=== PATIENT | male | born 1970 | race Caucasian/White ===

== ENCOUNTER 2024-02-28 10:16 | Emergency (ER) | payer MEDICARE, MEDICAID, SELFPAY ==
--- NOTE | ~2024-02-28 | XR_ITS ---
EXAMINATION: XR CHEST CLINICAL INFORMATION: Chest pain COMPARISON: None available. TECHNIQUE: Frontal view of the chest was obtained. FINDINGS: Cardiomediastinal silhouette is within normal limits. No vascular congestion or edema. Hypoexpanded lungs. Streaky opacities bilaterally in the mid and lower lungs. Focal pleural thickening in the left mid chest may relate to pleural effusion or chronic pleural thickening. No pneumothorax. XR/XR chest 1V IMPRESSION: Streaky opacities in the bilateral mid and lower lungs. Favor atelectasis. Pneumonia not excluded. Smooth pleural thickening along the left mid chest wall may relate to pleural effusion or chronic pleural thickening. There is no prior for comparison.
--- NOTE | 2024-02-28 10:17 | ECG_ITS ---
Test Reason : CHEST PAIN Blood Pressure : / mmHG Vent. Rate : 083 BPM Atrial Rate : 083 BPM P-R Int : 144 ms QRS Dur : 078 ms QT Int : 356 ms P-R-T Axes : 052 035 093 degrees QTc Int : 418 ms Normal sinus rhythm Nonspecific ST and T wave abnormality Borderline ECG No previous ECGs available Referred By: Christal Church Electronically Signed By:AGUILA TRACEY
--- NOTE | 2024-02-28 10:27 | ED.GENADULT ---
HPI - General Adult General Chief complaint: Chest Pain Stated complaint: Chest pain Time Seen by Provider: 02/28/24 10:19 Source: patient and family (Mother, Jo Ann) Mode of arrival: ambulatory Limitations: no limitations History of Present Illness ED Provider: Dr. Ravinder Sahu HPI narrative: 53-year-old male with a history of hypertension and tobacco use disorder who presents emergency department for evaluation of left-sided chest pain. The patient states that at 09:30 hours he was sitting drinking a soda when he had a gradual onset of left-sided chest pain. Patient points to his left anterior chest when asked to localize the pain. He states the pain is a constant, throbbing pain which waxes and wanes in intensity. The pain is 9/10 at its worst. Pain radiates to his right shoulder. It does not radiate to his neck, jaw or back. He denied diaphoresis, lightheadedness, dizziness, nausea, vomiting or shortness of breath associated with his pain. He states this is 1st episode of pain. Patient states he has not been ill in the last week. He has not had any dyspnea on exertion or chest with exertion. He denied fever, chills, cough, abdominal pain. Related Data Allergies Allergy/AdvReac Type Severity Reaction Status Date / Time No Known Allergies Allergy Verified 02/28/24 10:52 [facility] Past Medical History [facility] Narrative: Past medical history: Hypertension. Social history: He smokes 1 pack of cigarettes per day times 37 years he denies alcohol or drug use. Social History Social History Alcohol intake: former Smoked in Last 30 Days: Yes Use of substances other than those prescribed or required for medical reasons: No Advance Directives: No Advance Directives Information Provided: Yes Physical Exam ED Vital Signs: Vital Signs - 24 hr 02/28/24 10:51 02/28/24 12:21 02/28/24 14:23 Temperature 98 F 98.0 F 98.4 F Pulse Rate 87 83 85 Respiratory Rate 18 14 18 Blood Pressure 131/86 117/79 114/75 Pulse Oximetry 98 94 94 Oxygen Delivery Method Room Air Room Air Room Air BMI result Body Mass Index 35.2 Vital signs were normal Exam: General: Awake, alert in no distress Head: Normocephalic, atraumatic EENT: PERRL, Lids normal, sclera normal, conjunctiva normal, nose normal , ears normal, throat without erythema or exudates Neck: Supple, no adenopathy Lung: breath sounds symmetric, no wheezing, rales or rhonchi Chest: symmetric movement, moderate, left-sided costochondral tenderness Heart: regular rate and rhythm, normal S1, S2 no murmurs or rubs Abdomen: soft, non-tender, nondistended, normal bowel sounds Back: no vertebral tenderness, no CVAT Extremities: no deformities, moves all extremities symmetrically Neuro: Awake, alert, oriented, normal speech, moves all extremities symmetrically Psych: Pleasant, cooperative Course Course Course Narrative: This is an RME done by AJ Church: Additional HPI, ROS, PE not included below will be deferred to primary provider. 53 yo m hx obesity, hld, htn presents w/ sudden onset cp substernal w/ radiation to RUE patient reports pain started at 0930 when he wasnt doing anything but relaxing, this has never happened before. Pain worse w/ laying flat and better leaning forward. No Sob, recent illness, fevers, chills, n/v, jaw pain Appearance: Alert.? Oriented X3.? No acute cardiopulmonary distress distress.? Head: Normocephalic, atraumatic, no step-offs or deformities Neck: Normal inspection.? Neck supple.? CVS: Pulses normal.? Respiratory: No respiratory distress.? Skin: ? Normal skin color. Extremities: 5/5 strength to bilateral upper and lower extremities Neuro: Oriented X 3.? No motor deficit.? No sensory deficit. Medications Administered Discontinued Medications Generic Name Dose Route Start Last Admin Trade Name Freq PRN Reason Stop Dose Admin Ibuprofen 400 mg 02/28/24 12:01 02/28/24 12:07 Ibuprofen 400 Mg Tablet PO 02/28/24 12:02 400 mg ONCE ONE Administration Medical Decision Making Medical Decision Making [facility] Narrative: 53-year-old male with a history of hypertension tobacco use disorder who presents emergency department for evaluation of gradual onset of left anterior chest wall tenderness which is been constant throbbing sensation that has then waxing and waning in intensity. Patient is pain does radiate to his right shoulder otherwise there were no other concerning associated or systemic symptoms. This is the patient's 1st episode of this type of pain. Vital signs were normal. Exam did reveal left-sided costochondral tenderness otherwise was unremarkable. Differential diagnosis: ?Includes but is not limited to myocardial infarction, myocardial ischemia, costochondritis, chest wall pain, anemia, electrolyte abnormalities Following evaluation was ordered: CBC, CMP, troponin, PT/INR, BNP, chest x-ray one view, EKG Patient was initially treated with the following: Ibuprofen 400 mg orally Course: 12:36 Twelve EKG was unremarkable. One-view chest x-ray revealed scarring at the left base versus infiltrate, no old chest x-ray for comparison My interpretation patient's laboratory evaluation is as follows: CBC was normal. CMP was normal. BNP was normal. PT/INR was normal. High sensitive troponin I was below detectable limits. The patient had less than 3 hours of pain at the time of her presentation therefore I will obtain a 3 hour troponin to rule out myocardial injury/infarction as the cause of his pain. Repeat troponin is due at 14:00 hours. 14:26 Patient's 3 hour repeat high sensitive troponin I was also below detectable limits which is reassuring. Patient states that he only got minimal relief of his pain with the ibuprofen. Patient's presentation is consistent with costochondritis and I did discuss this with him and his mother. Patient was advised to take ibuprofen 400 mg 3 times a day for the next 3-4 days, he was also advised to continue taking Tylenol. He was given printed and verbal instructions and discharged home. Admission/Observation Consideration of admission/observation: Escalation of care including admission/observation considered Lab Data MDM Lab Attestation statement: I reviewed the patient's lab results. 02/28/24 10:49 02/28/24 10:48 Labs: Lab Results 02/28/24 02/28/24 02/28/24 Range/Units 10:48 10:49 13:51 WBC 6.8 (4.8-10.8) X10*3/uL RBC 4.44 L (4.60-5.80) X10*6/uL Hgb 14.7 (14.0-18.0) g/dl Hct 42.2 (42.0-52.0) % MCV 95.0 (80.0-98.0) fL MCH 33.1 H (27.0-33.0) pg MCHC 34.8 (31.0-36.0) g/dl RDW 12.3 (11.0-16.0) % Plt Count 170 (160-400) X10*3/uL MPV 9.8 (9.4-12.4) fL Immature Gran % (Auto) 0.6 H (0.0-0.4) % Neut % (Auto) 55.4 (45-73) % Lymph % (Auto) 30.2 (20-40) % Charles % (Auto) 10.4 (2-11) % Eos % (Auto) 2.7 (0-4) % Baso % (Auto) 0.7 (0-2) % Lymph # (Auto) 2.0 (1.2-4.9) X10*3/uL Charles # (Auto) 0.7 (0.1-1.2) X10*3/uL Eos # (Auto) 0.2 (0.0-0.4) X10*3/uL Baso # (Auto) 0.1 (0.0-0.2) X10*3/uL Abs Immat Gran (auto) 0.04 H (0.00-0.03) X10*3/uL Absolute Neuts (auto) 3.7 (2.0-8.3) x10*3/uL Absolute Nucleated RBC 0.000 (0.0-0.012) X10*3/uL Nucleated RBC % (auto) 0.0 (0.0-0.2) /100WBC PT 11.7 (11.1-13.3) SEC INR 1.0 (0.9-1.1) Sodium 140 (135-145) mmol/L Potassium 4.0 (3.3-5.1) mmol/L Chloride 106 (96-108) mmol/L Carbon Dioxide 25 (22-29) mmol/L Anion Gap 13 (12-20) BUN 15 (9-16) mg/dL Creatinine 0.96 (0.5-1.4) mg/dL Estim Creat Clear Calc 102.4 Estimated GFR > 60 Random Glucose 105 (60-115) mg/dL Calcium 9.3 (8.4-10.2) mg/dL Magnesium 1.8 (1.6-2.6) mg/dL Total Bilirubin 0.2 (0.0-1.0) mg/dL AST 15 (5-37) U/L ALT 27 (0-40) U/L Alkaline Phosphatase 71 (39-117) U/L Troponin I High Sens < 2.7 < 2.7 (<3.5-35.0) ng/L B-Natriuretic Peptide 12 (<100) pg/mL Total Protein 7.3 (6.5-8.0) g/dL Albumin 4.1 (3.5-5.0) g/dL Independent Interpretation I performed an independent interpretation of an: EKG and Plain X-Ray Interpretation: My independent interpretation patient's one-view chest x-ray is as follows: Left lower lobe infiltrate more consistent with atelectasis or scarring then pneumonia. There has no previous chest x-ray for comparison. My independent interpretation patient's 12 EKG done at 10:19 hours is as follows: Normal sinus rhythm with a rate of 83, normal OH interval, QRS duration QTC interval no ST segment elevation, no ST segment depression, no significant T-wave abnormalities, no PACs, no PVCs-this is a normal EKG. There has no previous EKG for comparison. Radiology Impression Discussion of test interpretation with radiology: I have reviewed the radiologist's reading. Radiologist Impression: XR chest 1V IMPRESSION: Streaky opacities in the bilateral mid and lower lungs. Favor atelectasis. Pneumonia not excluded. Smooth pleural thickening along the left mid chest wall may relate to pleural effusion or chronic pleural thickening. There is no prior for comparison. Dictated By: Imer Francois MD Independent Historian Clinical information obtained from an independent historian. History obtained from or confirmed by: Parent Chronic Conditions Patient?s care impacted by: Hypertension and Other (Tobacco use disorder) Discharge Plan Discharge Clinical Impression: Acute costochondritis Patient Disposition: Home, Self-Care Instructions: Costochondritis (ED) Additional Instructions: Your blood work was normal pain Your high sensitive troponin I (marker for heart attack/heart damage) was initially below detectable limits and the 3 hour repeat test was also below detectable limits suggesting that your pain is not caused by heart attack or heart damage. You do have tenderness when I pushed on the joints on the left side of your chest. This is most likely due to inflammation of these joints and this is called costochondritis. Take ibuprofen 200 mg pills, 2 pills every 6 hours as needed for pain or fever. Take Tylenol (acetaminophen) 500 mg pills, 2 pills every 6 hours as needed for pain or fever. Follow-up with your doctor in 2 days. Please return to the emergency department if your symptoms get worse or if you develop any symptoms that are concerning to you. Print Language: Pashto
[2024-02-28 10:51] VITALS: BP 131/86; PULSE 87; RESP 18; TEMP 36.6; O2SAT 98; BMI 35.2
[2024-02-28 10:54] LABS: MANUAL DIFF FLAG NO
[2024-02-28 10:57] LABS: Basophils Absolute Auto 0.1 X10*3/uL (0.0-0.2); Basophils Percent Auto 0.7 % (0-2); Eosinophils Absolute Auto 0.2 X10*3/uL (0.0-0.4); Eosinophils Percent Auto 2.7 % (0-4); Hematocrit 42.2 % (42.0-52.0); Hemoglobin 14.7 g/dl (14.0-18.0); Imm Gran Abs Auto 0.04 X10*3/uL (0.00-0.03); Imm Gran Pct Auto 0.6 % (0.0-0.4); Lymphocytes Percent Auto 30.2 % (20-40); Mean Corpuscular HGB Conc 34.8 g/dl (31.0-36.0); Mean Corpuscular Hemoglobin 33.1 pg (27.0-33.0); Mean Platelet Volume 9.8 fL (9.4-12.4); Monocytes Absolute Auto 0.7 X10*3/uL (0.1-1.2); Monocytes Percent Auto 10.4 % (2-11); Neutrophils Absolute Auto 3.7 x10*3/uL (2.0-8.3); Neutrophils Percent Auto 55.4 % (45-73); Platelet Count 170 X10*3/uL (160-400); Red Blood Count 4.44 X10*6/uL (4.60-5.80); Red Cell Distribution Width 12.3 % (11.0-16.0); White Blood Count 6.8 X10*3/uL (4.8-10.8)
[2024-02-28 11:04] LABS: Prothrombin Time 11.7 SEC (11.1-13.3)
[2024-02-28 11:19] LABS: Alanine Aminotransferase 27 U/L (0-40); Albumin Level 4.1 g/dL (3.5-5.0); Alkaline Phosphatase 71 U/L (39-117); Anion Gap 13 (12-20); Aspartate Amino Transferase 15 U/L (5-37); Bilirubin Total 0.2 mg/dL (0.0-1.0); Blood Urea Nitrogen 15 mg/dL (9-16); Calcium 9.3 mg/dL (8.4-10.2); Carbon Dioxide 25 mmol/L (22-29); Chloride 106 mmol/L (96-108); Creatinine Clr Calc Pharmacy 102.4; Estimated Glomerular Filt Rate > 60; Glucose Random 105 mg/dL (60-115); Magnesium 1.8 mg/dL (1.6-2.6); Sodium 140 mmol/L (135-145); Total Protein 7.3 g/dL (6.5-8.0)
[2024-02-28 11:21] LABS: B Type Natriuretic Peptide 12 pg/mL (<100)
[2024-02-28 11:22] LABS: Troponin-I High Sensitivity < 2.7 ng/L (<3.5-35.0)
[2024-02-28] MEDS: Ibuprofen 400 MG TABLET PO (12:07)
[2024-02-28 12:21] VITALS: BP 117/79; PULSE 83; RESP 14; TEMP 36.7; O2SAT 94
[2024-02-28 14:19] LABS: Troponin-I High Sensitivity < 2.7 ng/L (<3.5-35.0)
[2024-02-28 14:23] VITALS: BP 114/75; PULSE 85; RESP 18; TEMP 36.9; O2SAT 94
[2024-02-28 14:46] VITALS: BP 114/75; PULSE 85; RESP 18; TEMP 36.9; O2SAT 98
== END 2024-02-28 14:47 | disposition home or self-care (01) ==
PROVIDERS: Physician Assistant; Emergency Provider Emergency Medicine Emergency Medical Services
DX: M94.0 Chondrocostal junction syndrome [Tietze] (principal); R06.02 Shortness of breath; I10 Essential (primary) hypertension; F17.210 Nicotine dependence, cigarettes, uncomplicated
CPT/HCPCS: 36415; 71045; 80053; 83735; 83880; 84484; 85025; 85610; 93005; 99283; 99285

== ENCOUNTER → 2024-02-28 10:17 | Outpatient (BNV) | payer MEDICARE, SELFPAY | PROVIDERS: Emergency Provider Emergency Medicine Emergency Medical Services; Visit Provider Internal Medicine | DX: R07.9 Chest pain, unspecified (principal) | CPT/HCPCS: 93010 ==